=== PATIENT | male | born 1935 | race Caucasian/White ===

== ENCOUNTER → 2017-10-28 | Outpatient (CLI) | payer OTHER ==
[~2017-10-28] MED LIST: AMLODIPINE BESYL5 MG; ASPIR 8181 M1 PO; Antivert PO; Aspirin E.C. PO; ECONOPRED PLUS10 ML RIGHT EYE; Norvasc PO; Pravachol PO; Pred Forte 1%,Omnipr RIGHT EYE
== END | disposition home or self-care (01) ==
LOC: CDC 08:16
DX: Z01.810 Encounter for preprocedural cardiovascular examination (principal); N40.1 Benign prostatic hyperplasia with lower urinary tract symptoms; R33.8 Other retention of urine; I44.0 Atrioventricular block, first degree; R94.31 Abnormal electrocardiogram [ECG] [EKG]
CPT/HCPCS: 93000